=== PATIENT | female | born 1955 | race Caucasian/White ===

== ENCOUNTER → 2016-09-13 | Outpatient (CLI) | payer OTHER ==
[~2016-09-13] VITALS: Ht 162.6 cm; Wt 87.1 kg
[~2016-09-13] MED LIST: CAL MAG ZINC +1 EAC1 PO; CYANOCOBAL1000 MCG/2 IM; FISH OIL 1,0001 EAC7 PO; GLUCOPHAGE500 MG PO; PAXIL30 MG PO; PRAVASTATIN SOD40 MG PO; PRINIVIL5 MG PO; VITAMIN B12 IM; VITAMIN D2000 UNI1 PO; [UNRECOGNIZED DRUG - MIXTURE] PO
[2016-09-13 08:21] LABS: POINT-OF-CARE METER ID UU13113694
== END | disposition home or self-care (01) ==
LOC: AMB 07:43
PROVIDERS: Internal Medicine
PROC: 0DJD8ZZ Inspection of Lower Intestinal Tract, Via Natural or Artificial Opening Endoscopic (ICD-10-PCS; principal; 2016-09-13)
DX: Z12.11 Encounter for screening for malignant neoplasm of colon (principal); Z80.0 Family history of malignant neoplasm of digestive organs; K21.9 Gastro-esophageal reflux disease without esophagitis; E78.01 Familial hypercholesterolemia; I44.0 Atrioventricular block, first degree; I10 Essential (primary) hypertension; Z81.1 Family history of alcohol abuse and dependence; Z80.41 Family history of malignant neoplasm of ovary; Z83.3 Family history of diabetes mellitus
CPT/HCPCS: 82948; 93005; J2250; J3010